=== PATIENT | male | born 1955 | race Caucasian/White ===

== ENCOUNTER 2016-06-27 08:05 | Day surgery (SDC) | payer MEDICARE, BC ==
[~2016-06-27] VITALS: Ht 170.2 cm
--- NOTE | 2016-06-28 07:43 | OR ---
ADMIT: 06/27/2016 RM/LOC: [facility] MR#: [id number] [id number] [address] [place] [address] Operative/Delivery Room Report SEX: M AGE: 60 : 1955 SURGERY DATE: 06/27/2016 SURGEON: Aubree Teague MD CLOTH FOLDER MACHINE: None. PREPROCEDURE DIAGNOSES: 1. Lumbar disk degeneration. 2. Lumbosacral neuritis. POSTPROCEDURE DIAGNOSES: 1. Lumbar disk degeneration. 2. Lumbosacral neuritis. PROCEDURE PERFORMED: L5-S1 interlaminar epidural steroid injection. INDICATIONS FOR PROCEDURE: The patient is a pleasant gentleman with history of chronic low back pain, secondary to above-mentioned diagnoses, comes here for planned lumbar epidural steroid injection. ANESTHESIA: Local without sedation. ESTIMATED BLOOD LOSS: Zero. COMPLICATIONS: None immediately evident. DESCRIPTION OF PROCEDURE: After the patient was seen in the preoperative area, vitals signs were taken. Prior to the procedure, the risks, benefits, and alternative therapies were discussed at length. Patient consent was obtained and updated. The patient was taken to the fluoroscopy suite and placed on the fluoroscopy table in the prone position. Pressure points were padded to comfort, monitors applied, and a timeout performed. Fluoroscopy was brought in. The patient was sterilely prepped and draped in the usual manner with ChloraPrep solution, and 1% lidocaine was used to anesthetize the appropriate needle entry site. Utilizing a midline approach, ADMIT: 06/27/2016 RM/LOC: [facility] MR#: [id number] [address] [address] [place], [place] [address] Operative/Delivery Room Report SEX: M AGE: 60 : 1955 continuous loss of resistance technique with preservative-free normal saline and intermittent fluoroscopic guidance, the posterior epidural space was easily entered. Once the epidural space had been entered through L5-S1. The patient was injected with 2 mL of Isovue-300 and outlining of the posterior epidural space was observed with no evidence of vascular uptake and intrathecal migration. Next, a solution consisting of 10 mL of preservative- free normal saline and 80 mg of Depo-Medrol was injected. The needle was withdrawn. The patient was escorted back to the preoperative area and observed for a period of time. PLAN: Discharge instructions were given, followup scheduled. The patient was discharged home with a mule driver. Aubree Teague MD/ jenise JOB #: [id number] CC: Aubree Teague, Attending Physician Michelle Dutta, Family Physician
== END 2016-06-27 09:22 | disposition home or self-care (01) ==
LOC: SSS 08:05
PROC: 3E0S3BZ Introduction of Anesthetic Agent into Epidural Space, Percutaneous Approach (ICD-10-PCS; principal; 2016-06-27)
PROC: 3E0S33Z Introduction of Anti-inflammatory into Epidural Space, Percutaneous Approach (ICD-10-PCS; principal; 2016-06-27)
DX: G89.29 Other chronic pain (principal); M51.17 Intervertebral disc disorders with radiculopathy, lumbosacral region; M47.22 Other spondylosis with radiculopathy, cervical region; M48.00 Spinal stenosis, site unspecified; G93.49 Other encephalopathy; M79.1 Myalgia; Z88.8 Allergy status to other drugs, medicaments and biological substances; Z79.899 Other long term (current) drug therapy

== ENCOUNTER 2016-07-11 08:16 | Day surgery (SDC) | payer MEDICARE, BC ==
[~2016-07-11] VITALS: Ht 170.2 cm; Wt 78.5 kg
--- NOTE | 2016-07-12 08:09 | OR ---
ADMIT: 07/11/2016 RM/LOC: [facility] MR#: [id number] [address] [address] [place] [address] Operative/Delivery Room Report SEX: M AGE: 60 : 1955 SURGERY DATE: 07/11/2016 SURGEON: Aubree Teague MD FERMENTATION ENGINEER: None. PREPROCEDURE DIAGNOSES: 1. Lumbar disk degeneration. 2. Lumbosacral neuritis. POSTPROCEDURE DIAGNOSES: 1. Lumbar disk degeneration. 2. Lumbosacral neuritis. PROCEDURE PERFORMED: L5-S1 interlaminar epidural steroid injection. INDICATIONS FOR PROCEDURE: The patient is a pleasant gentleman with history of chronic low back pain secondary to above mentioned diagnoses, comes here for planned lumbar epidural steroid injection. ANESTHESIA: Local without sedation. ESTIMATED BLOOD LOSS: Zero. COMPLICATIONS: None immediately evident. DESCRIPTION OF PROCEDURE: After the patient was seen in the preoperative area, vitals signs were taken. Prior to the procedure, the risks, benefits, and alternative therapies were discussed at length. Patient consent was obtained and updated. The patient was taken to the fluoroscopy suite and placed on the fluoroscopy table in the prone position. Pressure points were padded to comfort, monitors applied, and a timeout performed. Fluoroscopy was brought in. The patient was sterilely prepped and draped in the usual manner with ChloraPrep solution, and 1% lidocaine was used to anesthetize the appropriate needle entry site. Utilizing a midline approach, ADMIT: 07/11/2016 RM/LOC: [facility] MR#: [id number] [address] [address] [place] [address] Operative/Delivery Room Report SEX: M AGE: 60 : 1955 continuous loss of resistance technique with preservative-free normal saline and intermittent fluoroscopic guidance, the posterior epidural space was easily entered. Once the epidural space had been entered through L5-S1. The patient was injected with 2 mL of Isovue-300 and outlining of the posterior epidural space was observed with no evidence of vascular uptake and intrathecal migration. Next, a solution consisting of 10 mL of preservative- free normal saline and 80 mg of Depo-Medrol was injected. The needle was withdrawn. The patient was escorted back to the preoperative area and observed for a period of time. PLAN: Discharge instructions were given, followup scheduled. The patient was discharged home with a lyft driver. Aubree Teague MD/ jenise JOB #: [id number] CC: Aubree Teague, Attending Physician Michelle Dutta, Family Physician
== END 2016-07-11 10:25 | disposition home or self-care (01) ==
LOC: SSS 08:16
PROC: 3E0S33Z Introduction of Anti-inflammatory into Epidural Space, Percutaneous Approach (ICD-10-PCS; principal; 2016-07-11)
PROC: B01BYZZ Fluoroscopy of Spinal Cord using Other Contrast (ICD-10-PCS; principal; 2016-07-11)
PROC: 3E0S3BZ Introduction of Anesthetic Agent into Epidural Space, Percutaneous Approach (ICD-10-PCS; principal; 2016-07-11)
DX: G89.29 Other chronic pain (principal); M51.17 Intervertebral disc disorders with radiculopathy, lumbosacral region; G24.3 Spasmodic torticollis; M47.22 Other spondylosis with radiculopathy, cervical region; M50.90 Cervical disc disorder, unspecified, unspecified cervical region; M48.00 Spinal stenosis, site unspecified; G93.49 Other encephalopathy; Z88.8 Allergy status to other drugs, medicaments and biological substances; Z79.899 Other long term (current) drug therapy

== ENCOUNTER 2016-12-19 08:31 | Day surgery (SDC) | payer MEDICARE, BC ==
[~2016-12-19] VITALS: Ht 170.2 cm; Wt 81.0 kg
--- NOTE | 2016-12-20 08:52 | OR ---
ADMIT: 12/19/2016 RM/LOC: [facility] MR#: [id number] [address] [place] [id number] [place] [address] Operative/Delivery Room Report SEX: M AGE: 61 : 1955 SURGERY DATE: 12/19/2016 SURGEON: Aubree Teague MD SOLAR FIELD SERVICE TECHNICIAN: None. PREPROCEDURE DIAGNOSES: 1. Lumbar disk degeneration. 2. Lumbosacral neuritis. POSTPROCEDURE DIAGNOSES: 1. Lumbar disk degeneration. 2. Lumbosacral neuritis. PROCEDURE PERFORMED: L5-S1 interlaminar epidural steroid injection. INDICATIONS FOR PROCEDURE: The patient is a pleasant gentleman with history of chronic low back pain secondary to above-mentioned diagnoses comes here for planned lumbar epidural steroid injection. ANESTHESIA: Local without sedation. ESTIMATED BLOOD LOSS: Zero. COMPLICATIONS: None immediately evident. DESCRIPTION OF PROCEDURE: After the patient was seen in the preoperative area, vitals signs were taken. Prior to the procedure, the risks, benefits, and alternative therapies were discussed at length. Patient consent was obtained and updated. The patient was taken to the fluoroscopy suite and placed on the fluoroscopy table in the prone position. Pressure points were padded to comfort, monitors applied, and a timeout performed. Fluoroscopy was brought in. The patient was sterilely prepped and draped in the usual manner with ChloraPrep solution, and 1% lidocaine was used to anesthetize the appropriate needle entry site. Utilizing a midline approach, continuous loss of resistance technique with preservative-free normal saline ADMIT: 12/19/2016 RM/LOC: [facility] MR#: [id number] [address] [place] [facility] [facility] [place] [address] Operative/Delivery Room Report SEX: M AGE: 61 : 1955 and intermittent fluoroscopic guidance, the posterior epidural space was easily entered. Once the epidural space had been entered through LS-S1. The patient was injected with 2 mL of Isovue-300 and outlining of the posterior epidural space was observed with no evidence of vascular uptake and intrathecal migration. Next, a solution consisting of 10 mL of preservative- free normal saline and 80 mg of Depo-Medrol was injected. The needle was withdrawn. The patient was escorted back to the preoperative area and observed for a period of time. PLAN: Discharge instructions were given, followup scheduled. The patient was discharged home with a airport shuttle driver. Aubree Teague MD/ jenise JOB #: [id number] CC: Aubree Teague, Attending Physician Michelle Dutta, Family Physician
== END 2016-12-19 10:04 | disposition home or self-care (01) ==
LOC: SSS 08:31
PROC: 3E0S33Z Introduction of Anti-inflammatory into Epidural Space, Percutaneous Approach (ICD-10-PCS; principal; 2016-12-19)
PROC: B01BYZZ Fluoroscopy of Spinal Cord using Other Contrast (ICD-10-PCS; principal; 2016-12-19)
PROC: 3E0S3CZ (ICD-10-PCS; principal; 2016-12-19)
DX: G89.29 Other chronic pain (principal); M51.17 Intervertebral disc disorders with radiculopathy, lumbosacral region; M47.22 Other spondylosis with radiculopathy, cervical region; M50.90 Cervical disc disorder, unspecified, unspecified cervical region; M47.26 Other spondylosis with radiculopathy, lumbar region; M79.1 Myalgia; G93.49 Other encephalopathy; Z88.8 Allergy status to other drugs, medicaments and biological substances; Z79.899 Other long term (current) drug therapy; Z79.52 Long term (current) use of systemic steroids